=== PATIENT | male | born 2000 | race Caucasian/White ===

== ENCOUNTER 2021-12-19 11:01 | Emergency (ER) | payer MEDICAID ==
[~2021-12-19] VITALS: Ht 165.1 cm; Wt 90.0 kg
[2021-12-19] MEDS ORDERED: CEPH500T MT (12:06)
[2021-12-19 12:10] VITALS: BP 145/65
== END 2021-12-19 12:11 | disposition home or self-care (01) ==
LOC: ER 11:01
DX: L60.0 Ingrowing nail (principal)
CPT/HCPCS: 99282; 99283